=== PATIENT | female | born 1995 | race Caucasian/White ===

== ENCOUNTER 2019-10-17 14:42 | Emergency (ER) | payer OTHER ==
[2019-10-17] MEDS ORDERED: Sodium Chloride 0.9% 10 ML Syringe FLUSH PRN (15:05)
--- NOTE | 2019-10-17 15:18 | EDM.PDOC ---
ED HPI GENERAL MEDICAL PROBLEM - General Chief Complaint: Genitourinary Problem Stated Complaint: 6WEEK , CRAMPING/BLEEDING Time Seen by Provider: 10/17/19 15:04 Source of Information: Reports: Patient, RN Notes Reviewed History Limitations: Reports: No Limitations - History of Present Illness INITIAL COMMENTS - FREE TEXT/NARRATIVE: Patient is a 24-year-old who presents to the ER for the evaluation of a 6-week and vaginal bleeding. The patient notes she is a G3, P0, all for which have had spontaneous miscarriages. She has been labeled high risk as she has a history of endometriosis and PCOS, she is a patient of Dr. Dennis's out of [place]. The patient states that she did have to do fertility treatments to become . The patient notes that at around 11:30 AM this morning, she developed some intense right lower quadrant abdominal pain that was sharp and stabbing in nature, with bright red vaginal bleeding at that time. She states she has soaked through 1 pad since 11:30am. She has not noticed any clots or tissue. She notes that the pain has now relented to more of a crampy, achy pain. The patient denies any fevers or chills, or any sick- like symptoms before this, she further denies any urinary issues. She notes she still retains her appendix, however she has had a laparoscopic evaluation for her endometriosis and PCOS. She notes that her last regular bowel movement was this morning. Right Lower Abdomen Pain Score (Numeric/FACES): 2 - Related Data Allergies Allergy/AdvReac Type Severity Reaction Status Date / Time Penicillins Allergy Rash Verified 04/17/19 11:53 Home Meds: Home Meds Estradiol 3 tab PO DAILY 10/17/19 [History] SWH917/Iron Fumarate/FA/DSS [ 19 Tablet] 1 each PO DAILY 10/17/19 [ History] Progesterone, Micronized [Progesterone] 0 mg RECTAL BID 10/17/19 [History] metFORMIN [Glucophage XR] 750 mg PO BID 10/17/19 [History] Past Medical History HEENT History: Reports: Impaired Vision Cardiovascular History: Reports: None Respiratory History: Reports: None Gastrointestinal History: Reports: None 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 Musculoskeletal Surgical History: Reports: Arthroscopic Knee Social & Family History - Tobacco Use Smoking Status *Q: Never Smoker - Caffeine Use Caffeine Use: Reports: None - Recreational Drug Use Recreational Drug Use: No ED ROS GENERAL - Review of Systems Review Of Systems: See Below Constitutional: Denies: Fever, Chills, Decreased Appetite Respiratory: Denies: Shortness of Breath Cardiovascular: Denies: Chest Pain GI/Abdominal: Reports: Abdominal Pain (RLQ/pelvic pain). Denies: Constipation, Diarrhea, Nausea, Vomiting : Reports: Pain (RLQ/pelvic pain), Other (vaginal bleeding). Denies: Dysuria , Frequency, Hematuria, Urgency Musculoskeletal: Denies: Back Pain ED EXAM, RENAL/ - Physical Exam Exam: See Below Exam Limited By: No Limitations General Appearance: Alert, WD/WN, No Apparent Distress (pt is tearful at exam) Eye Exam: Bilateral Eye: Normal Inspection Ears: Normal External Exam Nose: Normal Inspection Throat/Mouth: Normal Inspection Head: Atraumatic, Normocephalic Neck: Normal Inspection Respiratory/Chest: No Respiratory Distress, Lungs Clear, Normal Breath Sounds, No Accessory Muscle Use, Chest Non-Tender Cardiovascular: Normal Peripheral Pulses, Regular Rate, Rhythm, No Murmur GI/Abdominal: Normal Bowel Sounds, Soft, No Distention, No Mass, Tender (RLQ with deep palpation). No: Rigid, Rebound (Female) Exam: Normal External Exam, Normal Speculum Exam, Adnexal Tenderness (Right side tenderness), Vaginal Bleeding (small amount of blood in vaginal vault). No: Cervical Dilatation, Products of Conception Extremities: Normal Inspection, Normal Capillary Refill Neurological: Alert, Oriented, Normal Cognition, No Motor/Sensory Deficits Psychiatric: Normal Affect, Normal Mood Skin Exam: Warm, Dry, Intact, Normal Color, No Rash Course - Vital Signs Last Recorded V/S: Last Vital Signs Temp 97.5 F 10/17/19 14:51 Pulse 90 10/17/19 14:51 Resp 18 10/17/19 14:51 BP 123/85 10/17/19 14:51 Pulse Ox 100 10/17/19 14:51 - Orders/Labs/Meds Orders: Active Orders 24 hr Category Date Time Status Notify Provider Consults [RC] ASDIRECTED Care 10/17/19 17:37 Ordered Peripheral IV Care [RC] . DIRECTED Care 10/17/19 15:05 Ordered Consult to Physician [CONS] Stat Cons 10/17/19 17:35 Ordered OB Transvaginal [US] Stat Exams 10/17/19 15:05 Ordered PATIENT RETYPE [BBK] Routine Lab 10/17/19 17:30 Ordered Sodium Chloride 0.9% [Saline Flush] Med 10/17/19 15:05 Ordered 10 ml FLUSH ASDIRECTED PRN Peripheral IV Insertion Adult [OM.PC] Stat Oth 10/17/19 15:05 Ordered Medication Orders Sodium Chloride (Saline Flush) 10 ml FLUSH ASDIRECTED PRN PRN Reason: Keep Vein Open Last Admin: 10/17/19 16:02 Dose: 10 ml Labs: Laboratory Tests 10/17/19 10/17/19 10/17/19 Range/Units 16:00 16:00 16:00 WBC 8.87 (3.98-10.04) K/mm3 RBC 4.69 (3.98-5.22) M/mm3 Hgb 13.2 (11.2-15.7) gm/dl Hct 38.5 (34.1-44.9) % MCV 82.1 (79.4-94.8) fl MCH 28.1 (25.6-32.2) pg MCHC 34.3 (32.2-35.5) g/dl RDW Std Deviation 38.3 (36.4-46.3) fL Plt Count 295 (182-369) K/mm3 MPV 10.9 (9.4-12.3) fl Neut % (Auto) 65.7 (34.0-71.1) % Lymph % (Auto) 24.9 (19.3-51.7) % [place] % (Auto) 8.2 (4.7-12.5) % Eos % (Auto) 1.0 (0.7-5.8) Baso % (Auto) 0.2 (0.1-1.2) % Neut # (Auto) 5.82 (1.56-6.13) K/mm3 Lymph # (Auto) 2.21 (1.18-3.74) K/mm3 [place] # (Auto) 0.73 H (0.24-0.36) K/mm3 Eos # (Auto) 0.09 (0.04-0.36) K/mm3 Baso # (Auto) 0.02 (0.01-0.08) K/mm3 HCG, Qual Positive H (NEGATIVE) HCG, Quant 879.0 mIU/mL Blood Type Gel Antibody Screen 10/17/19 Range/Units 16:00 WBC (3.98-10.04) K/mm3 RBC (3.98-5.22) M/mm3 Hgb (11.2-15.7) gm/dl Hct (34.1-44.9) % MCV (79.4-94.8) fl MCH (25.6-32.2) pg MCHC (32.2-35.5) g/dl RDW Std Deviation (36.4-46.3) fL Plt Count (182-369) K/mm3 MPV (9.4-12.3) fl Neut % (Auto) (34.0-71.1) % Lymph % (Auto) (19.3-51.7) % [place] % (Auto) (4.7-12.5) % Eos % (Auto) (0.7-5.8) Baso % (Auto) (0.1-1.2) % Neut # (Auto) (1.56-6.13) K/mm3 Lymph # (Auto) (1.18-3.74) K/mm3 [place] # (Auto) (0.24-0.36) K/mm3 Eos # (Auto) (0.04-0.36) K/mm3 Baso # (Auto) (0.01-0.08) K/mm3 HCG, Qual (NEGATIVE) HCG, Quant mIU/mL Blood Type O POSITIVE Gel Antibody Screen Negative Meds: Medications Generic Name Dose Route Start Last Admin Trade Name Freq PRN Reason Stop Dose Admin Sodium Chloride 10 ml 10/17/19 15:05 10/17/19 16:02 Saline Flush FLUSH 10 ml ASDIRECTED PRN Administration Keep Vein Open - Re-Assessments/Exams Free Text/Narrative Re-Assessment/Exam: 10/17/19 15:20 Patient presents to the ED for the evaluation of vaginal bleeding during . Patient puts her last menstrual period at around September 04. So she would be roughly 6 weeks by her account. Did order IV to be placed with CBC, hCG both qualitative and quantitative, type and screen, and a transvaginal ultrasound for initial management. Patient states that the pain is bearable and is not requesting anything for pain at this time. 10/17/19 16:04 RN did have a chance to speak with the patient, she states that roughly 4 weeks 1 day , her hCG level was 75, and 4 weeks 4 days , her hCG level was 325. 10/17/19 17:37 Labs are back, patient's blood type is O+ with no antibodies, hCG quantitative level is 879, and hemoglobin is within normal limits at this time. I did discuss the results of the ultrasound with Dr. Morales, he is going to be in to evaluate the patient. The ultrasound demonstrated no intrauterine , with a differential considerations including early intrauterine too soon to characterize, recent or possible ectopic gestation. Dr. Morales suggest that the patient not receive too much for pain medication, She will also be kept n.p.o. until Dr. Morales evaluates her, as she might be a surgical candidate for possible ectopic at this time. Patient was made aware of the ultrasound results, and that Dr. Morales would be in to evaluate, and she is understanding of the situation at this time. Departure - Departure Time of Disposition: 19:07 Disposition: Home, Self-Care 01 Condition: Fair Clinical Impression: Vaginal bleeding in , RLQ discomfort - Discharge Information *PRESCRIPTION DRUG MONITORING PROGRAM REVIEWED*: Yes *COPY OF PRESCRIPTION DRUG MONITORING REPORT IN PATIENT JUDI: No Instructions: Activity Restriction During , Ectopic , Easy-to -Read Referrals: Corina Dennis MD [Primary Care Provider] - Forms: ED Department Discharge Additional Instructions: You were evaluated in the ER today regarding your vaginal bleeding and . You had a thorough evaluation done at this ER visit, a transvaginal ultrasound was done, but could not find an intrauterine . This could represent a too early to establish intrauterine, or ectopic your case was discussed with [employer] on-call, Dr. Morales, he also did a thorough examination , and went over the risks and complications with you regarding possible ectopic . You were given an educational handout regarding ectopic is for your general review. Recommend that you limit strenuous activities, try to avoid any heavy lifting, heavier than a gallon of milk or 8 pounds. You may take Tylenol for the pain. Dr. Morales suggests a follow-up hCG level done Monday, please call your PASSENGER VESSEL [employer]F to have her write orders for this. Also a close follow-up in your office would be recommended to make sure that your is progressing the way it should. You did have the benefits and risks discussed with you, regarding possible ectopic . If you should have any worsening abdominal cramping or pain , or increased vaginal bleeding (more than 1 pads/hr for 2-3hrs), that would be cause for concern to come directly back to the ER. Again we highly recommend that you discuss your visit with your [employer] provider , Dr. Dennis, tomorrow as soon as you can. Please return to the ER at any time if your symptoms should change or worsen. - My Orders Last 24 Hours: My Active Orders 10/17/19 15:05 Peripheral IV Care [RC] . DIRECTED OB Transvaginal [US] Stat Sodium Chloride 0.9% [Saline Flush] 10 ml FLUSH ASDIRECTED PRN Peripheral IV Insertion Adult [OM.PC] Stat 10/17/19 17:30 PATIENT RETYPE [BBK] Routine 10/17/19 17:35 Consult to Physician [CONS] Stat 10/17/19 17:37 Notify Provider Consults [RC] ASDIRECTED - Assessment/Plan Last 24 Hours: My Active Orders 10/17/19 15:05 Peripheral IV Care [RC] . DIRECTED OB Transvaginal [US] Stat Sodium Chloride 0.9% [Saline Flush] 10 ml FLUSH ASDIRECTED PRN Peripheral IV Insertion Adult [OM.PC] Stat 10/17/19 17:30 PATIENT RETYPE [BBK] Routine 10/17/19 17:35 Consult to Physician [CONS] Stat 10/17/19 17:37 Notify Provider Consults [RC] ASDIRECTED
--- NOTE | 2019-10-17 19:21 | PCM.SN ---
- Free Text/Narrative Note: CONSULTATION NOTE: Patient is a 24-year-old LMP 09/04/2019 who presents to the ER for the evaluation of a 6-week and vaginal bleeding. She has had 2 spontaneous miscarriages. She has been labeled high risk as she has a history of endometriosis and PCOS, she is a patient of Dr. Dennis's out of [place]. The patient states that she did have to do fertility treatments to become . The patient notes that at around 11:30 AM this morning, she developed some intense right lower quadrant abdominal pain that was sharp and stabbing in nature, with bright red vaginal bleeding at that time. She states she has soaked through 1 pad since 11:30am. She has not noticed any clots or tissue. She notes that the pain has now relented to more of a crampy, achy pain. The patient denies any fevers or chills, or any sick-like symptoms before this, she further denies any urinary issues. She notes she still retains her appendix, however she has had a laparoscopic evaluation for her endometriosis and PCOS. She notes that her last regular bowel movement was this morning. was induced with aid of medication, not IVF. Positive UPT 10/02/19. Patient had a quantitative beta-hCG obtained on 10/03 that was 75, subsequently on 10/07 she had a quantitative beta-hCG that was 355. Quantitative beta-hCG today is a 79. Blood type is O+ Patient states that the right lower quadrant pain that she had at 11:30 has not completely subsided. No severe unrelenting pain at this time. Patient has had no cramping like she had with her previous miscarriages. Bleeding has subsided vaginally. Ultrasound obtained and reported as ovaries normal in size and echotexture with appropriate flow by Doppler assessment. No intrauterine gestational sac is identified. Moderate free fluid intraperitoneally. Impression: No intrauterine . Differential considerations would include early intrauterine too soon to characterize, recent ABG, or possible ectopic gestation. Close interval hCG and sonographic follow-up suggested to better characterize. I talked with the patient concerning issues of possible miscarriage, possible ectopic and difficulty of visualizing same at this low volume of quantitative beta-hCG. Patient is strongly desirous of becoming . We discussed the possibilities of laparoscopy was performed that might result in possible removal of fallopian tube and she and I would like to avoid that if possible. Patient understands that ectopic is a possibility symptoms were discussed with her to report back to the emergency room or to her doctor in [place] Dr. dennis for follow-up instructions R come here if any problems develop. Also discussed dilatation and curettage but trying to avoid same in case early intrauterine . This bleeding could be from implantation and too early to identify gestation within the endometrial cavity. Patient is knowledgeable in aware of these concerns. She is in total agreement with trying to avoid surgery if possible. Pelvic examination: BUS, negative. Vagina exam shows less than 1 mL of old dark blood in the vagina barely dampening and large Q-tip. No blood exiting cervical os and no tissue in the vagina or cervical os. Uterus is upper limits normal size at most (not large noted to diagnose without additional knowledge of positive test.) No pain in either adnexa on examination. No enlargement of either ovary palpated. Her examination does not show pain significant enough to warrant the risk of surgery at this present time to rule out ectopic which might not be able to be visualized because of the low quantitative beta hCG value. Patient understands the risk of surgery and if one tube is removed and then another tubes that she would be sterile and she wants to avoid this if possible. And is willing to return if symptoms should worsen. Spotting and bleeding with positive test. Z32.01 Premises threatened ) O20.9 Pelvic rest No prolonged standing or exercise No lifting over Arm[place] of milk (8 pounds) Patient will contact Dr. dennis in [place] for additional instructions tomorrow. I talked with her about repeating quantitative beta-hCG on Monday and possibly again next week and then again the following week with ultrasound being repeated. If any heavy vaginal bleeding or problems returned to see us or Dr. dennis in [place].
--- NOTE | 2019-10-21 06:36 | US ---
First trimester obstetrical ultrasound: Multiple real-time images were obtained transvaginally. Comparison: No prior study for current . Findings: No intrauterine gestational sac is seen. Moderate amount of free fluid is noted within the pelvis. Maternal ovaries appear within normal limits. No definite adnexal abnormalities are seen. Impression: 1. No intrauterine gestational sac. 2. If patient has positive test, differential includes too early to visualize, nonvisualized ectopic as well as miscarriage. 3. Moderate amount of free fluid within the pelvis. Diagnostic code #3 This report was dictated in [place] Standard Time I agree with preliminary report from [facility], finalized on 10/17/19, 5:20 PM Central Time
== END 2019-10-17 19:25 | disposition home or self-care (01) ==
LOC: JD.ED 14:42
DX: O20.9 Hemorrhage in early pregnancy, unspecified (principal); O99.89 Other specified diseases and conditions complicating pregnancy, childbirth and the puerperium; R10.31 Right lower quadrant pain; O99.211 Obesity complicating pregnancy, first trimester; E66.9 Obesity, unspecified; Z3A.01 Less than 8 weeks gestation of pregnancy; Z79.899 Other long term (current) drug therapy
CPT/HCPCS: 36415; 76817; 76817-26; 84702; 84703; 85025; 86850; 86900; 86901; 99283; 99284-25

== ENCOUNTER 2020-08-16 19:41 | Emergency (ER) | payer OTHER ==
[2020-08-16] MEDS ORDERED: Lidocaine 1% with EPINEPHrine 1:100,000 20 ML MDV INJECT ONE (20:04)
--- NOTE | 2020-08-16 20:08 | EDM.PDOC ---
ED HPI GENERAL MEDICAL PROBLEM - General Chief Complaint: Upper Extremity Injury/Pain Stated Complaint: LEFT HAND LACERATION CUTTING FRUIT Time Seen by Provider: 08/16/20 20:00 Source of Information: Reports: Patient History Limitations: Reports: No Limitations - History of Present Illness INITIAL COMMENTS - FREE TEXT/NARRATIVE: 24-year-old female presents to the ED for evaluation of a accidental laceration/stab wound to the volar aspect of her left hand she believes in between the second and third fingers. Wound is spurting blood for over an hour and a half. She had a drive down from [facility]. She was slicing fruit when she slipped with a knife. She believes her tetanus toxoid is up-to-date. Onset: Today, Sudden Onset Date: 08/16/20 Onset Time: 18:15 Duration: Minutes: Location: Reports: Upper Extremity, Left (Left volar hand) Quality: Reports: Ache ( web spacing between the second and third fingers.), Burning Severity: Mild Improves with: Reports: None Worsens with: Reports: None Context: Reports: Trauma (With a knife while cutting up fruit.). Denies: Activity, Exercise, Lifting, Sick Contact Associated Symptoms: Reports: No Other Symptoms Treatments SENIOR CONSULTING MANAGER: Reports: Other (see below) (None.) - Related Data Allergies Allergy/AdvReac Type Severity Reaction Status Date / Time Penicillins Allergy Rash Verified 10/17/19 19:27 Home Meds: Home Meds Prenat 115/Iron Fum/Folic/Dss [ 19 Tablet] 1 each PO DAILY 10/17/19 [History] Progesterone, Micronized [Progesterone] 0 mg RECTAL BID 10/17/19 [History] estradioL [Estradiol] 3 tab PO DAILY 10/17/19 [History] metFORMIN [Glucophage XR] 750 mg PO BID 10/17/19 [History] Past Medical History HEENT History: Reports: Impaired Vision Cardiovascular History: Reports: None Respiratory History: Reports: None Gastrointestinal History: Reports: None 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 Musculoskeletal Surgical History: Reports: Arthroscopic Knee Social & Family History - Caffeine Use Caffeine Use: Reports: None - Living Situation & Occupation Living situation: Reports: Occupation: Employed Review of Systems - Review of Systems Review Of Systems: See Below Constitutional: Denies: Chills, Diaphoresis, Fever, Weakness, Other Eyes: Reports: Glasses. Denies: Drainage, Decreased Acuity Ears: Reports: No Symptoms Nose: Reports: No Symptoms Mouth/Throat: Reports: No Symptoms Respiratory: Reports: No Symptoms Cardiovascular: Reports: No Symptoms GI/Abdominal: Reports: No Symptoms Musculoskeletal: Reports: No Symptoms Skin: Reports: No Symptoms Neurological: Reports: No Symptoms Psychiatric: Reports: No Symptoms ED EXAM, GENERAL - Physical Exam Exam: See Below Exam Limited By: No Limitations General Appearance: Alert, WD/WN, No Apparent Distress, Mild Distress, Other (Vital signs are normal.) Extremities: Other (Examination reveals that she has several dish towels 3 or 4 wrapped around her left hand and the almost all soaked in blood. This suggest she has an arterial bleed within the palmar aspect of her left hand. When she removed the bowels there was blood spurting from wound between the second and third finger in the webspace. Patient identified have a 1.2 cm laceration between the second and third fingers palmar aspect of the hand. Wound is deep and involves an arterial bleeding. She states she has normal sensation to the second and third distal fingers.) Neurological: Alert, Oriented, CN II-XII Intact, Normal Cognition, Normal Gait Psychiatric: Anxious Skin Exam: Warm, Dry, Intact, Normal Color, No Rash ED TRAUMA EXTREMITY PROCEDURES - Laceration/Wound Repair Left Proximal Hand Lac/Wound Length In cm: 1.2 (The wound from the blade of a knife in the webspace between second and third fingers volarly) Appearance: Subcutaneous, Clean Distal NVT: Neuro & Vascular Intact Anesthetic Type: Local Local Anesthesia - Lidocaine (Xylocaine): 1% with EPI Local Anesthetic Volume: 3cc Skin Prep: Saline Exploration/Debridement/Repair: Wound Explored Closed With: Sutures Suture Size: 3-0 # of Sutures: 4 Suture Size: 4-0 # of Sutures: 2 (Arterial ligated due to persistent spurting and bleeding.) Repaired With: Vicryl Course - Orders/Labs/Meds Meds: Medications Discontinued Medications Generic Name Dose Route Start Last Admin Trade Name Troy PRN Reason Stop Dose Admin Lidocaine/Epinephrine 20 ml 08/16/20 20:04 Xylocaine 1% With Epinephrine 1:100,000 INJECT 08/16/20 20:05 ONETIME ONE - Radiology Interpretation Free Text/Narrative:: 24-year-old female whom is suffered a stab wound to the volar aspect of her left finger between second and third fingers. There is significant bleeding from the wound which appears to be arterial with spurting. Plan anesthetized the area with lidocaine 1%. Ligate the bleeding vessel and repair skin laceration. - Re-Assessments/Exams Free Text/Narrative Re-Assessment/Exam: 08/16/20 20:34 1.2 cm laceration volar aspect of left hand in between the second and third fingers volar aspect. This wound was complicated by arterial bleeding with spurting of blood from the wound. The vessel was identified and ligated with a curved hemostat then's ligated with 4-0 Vicryl x2. Skin wound was then closed using 3-0 Vicryl suture x4 to provide hemostasis and wound closure. Sutures will remain in place for 10 days. At which time they could be removed Departure - Departure Time of Disposition: 20:30 Disposition: Home, Self-Care 01 Condition: Fair Clinical Impression: Laceration of hand without complication, excluding fingers Qualifiers: Encounter type: initial encounter Laterality: left Qualified Code(s): S61.412A - Laceration without foreign body of left hand, initial encounter - Discharge Information *PRESCRIPTION DRUG MONITORING PROGRAM REVIEWED*: Not Applicable *COPY OF PRESCRIPTION DRUG MONITORING REPORT IN PATIENT JUDI: Not Applicable Referrals: Corina Dennis MD [Primary Care Provider] - Forms: ED Department Discharge, ED Return to Work/School Form Additional Instructions: Evaluation in the emergency room today in regards to acute puncture wound to the volar aspect of your left hand. This occurred at home while you were slicing up [employer]. Stab wound between the second and third webspaces of the left hand occurred. There was significant bleeding due to an artery that had been severed from the puncture wound. The articular artery was ligated to bring bleeding under control. 1.2 cm wound was then sutured with four 3-0 Ethilon sutures to provide wound closure. Expect the palm of your hand and including the mid space of the hand to turn black and blue over the next several days. Initial dressing placed in the ED could remain in place for the next 2 days. After this it should be removed. Then daily cleanse the wound with soap and water. Showering is okay. Then apply topical antibiotic such as bacitracin or Polysporin to the wound and keep it covered with a bandage to keep clean. Sutures will need to be removed in 10 days time.
== END 2020-08-16 20:45 | disposition home or self-care (01) ==
LOC: JD.ED 19:41
DX: S61.412A Laceration without foreign body of left hand, initial encounter (principal); E66.9 Obesity, unspecified; Z88.0 Allergy status to penicillin; Z68.30 Body mass index [BMI] 30.0-30.9, adult; W26.0XXA Contact with knife, initial encounter
CPT/HCPCS: 12001; 12031; 99282; 99282-25